=== PATIENT | female | born 1950 | race Two or more races ===

== ENCOUNTER 2019-05-14 08:40 | Day surgery (SDC) | payer OTHER ==
[~2019-05-14] VITALS: Ht 147.3 cm; Wt 72.0 kg
[2019-05-14] MEDS ORDERED: Synthroid88 MCG (09:45)
[2019-05-14] MEDS ORDERED: FLUV50 (09:46)
[2019-05-14] MEDS ORDERED: METO100ER (09:46)
[2019-05-14] MEDS ORDERED: LORA.5 (09:47)
[2019-05-14] MEDS ORDERED: Aspirin EC81 MG (09:47)
[2019-05-14] MEDS ORDERED: Vitamin D2000 UNIT (09:47)
[2019-05-14] MEDS ORDERED: PRAV20 (09:48)
--- NOTE | 2019-05-14 11:42 | NUR ---
05/14/19 1142 Mellisa Aranda PT. HR [address] WHEN COMING INTO ENDO ROOM. DR. DANIEL NOTIFIED, ORDER GIVEN FOR ROBINUL 0.2MG IV WHICH WAS GIVEN.
== END 2019-05-14 11:30 | disposition home or self-care (01) ==
LOC: ORSCSDS 08:40
PROVIDERS: Internal Medicine Gastroenterology
PROC: 0DJD8ZZ Inspection of Lower Intestinal Tract, Via Natural or Artificial Opening Endoscopic (ICD-10-PCS; principal; 2019-05-14 10:15)
DX: Z12.11 Encounter for screening for malignant neoplasm of colon (principal); Z86.010 Personal history of colon polyps; J45.909 Unspecified asthma, uncomplicated; I10 Essential (primary) hypertension; F32.9 Major depressive disorder, single episode, unspecified; E03.9 Hypothyroidism, unspecified; Z79.82 Long term (current) use of aspirin; Z79.899 Other long term (current) drug therapy
CPT/HCPCS: J2704; J7120

== ENCOUNTER → 2024-09-23 | Outpatient (CLI) | payer OTHER ==
[~2024-09-23] MED LIST: Aspirin EC81 MG; FLUV50; LORA.5; METO100ER; PRAV20; Synthroid88 MCG; Vitamin D2000 UNIT
[2024-09-23 18:27] LABS: Creatinine, Urine Random 64.6 mg/dL (27.00-270.00)
[2024-09-23 18:28] LABS: Microalb/Creat Ratio UR, Rand 21.981 mg/g (0.000-30.000); Microalbumin, Random Urine 14.2 mg/L (0.000-20.000)
== END ==
LOC: LAB SHORT 12:00 → LAB 12:00
PROVIDERS: Internal Medicine
DX: E11.69 Type 2 diabetes mellitus with other specified complication (principal); E78.2 Mixed hyperlipidemia
CPT/HCPCS: 82043; 82570

== ENCOUNTER → 2024-09-27 | Outpatient (CLI) | payer OTHER ==
[2024-09-27 12:18] LABS: Stool Occult Bld Immuno 1 Negative (NEGATIVE)
== END ==
LOC: LAB 09:00 → LAB SHORT 09:00
PROVIDERS: Internal Medicine
DX: D53.9 Nutritional anemia, unspecified (principal)
CPT/HCPCS: 82274